=== PATIENT | female | born 1990 | race Two or more races ===

== ENCOUNTER 2018-12-01 15:40 | Emergency (ER) | payer BC ==
[~2018-12-01] VITALS: Ht 157.5 cm; Wt 72.6 kg
--- NOTE | 2018-12-01 16:10 | PHYS DOC ---
Adult General Chief Complaint Chief Complaint: VAGINAL BLEEDING [facility] HPI Patient is a 28 year old Greek-speaking female 1 para 0 currently 6 weeks presenting to the ED today complaining of vaginal bleeding in that began today after having sex this morning. Patient is also complaining of slight low back cramping. Denies any nausea vomiting. Denies any urgency frequency dysuria. Denies any concerns for STDs. Interpretation was provided by the RN who speaks Greek (PATRICIA ALVAREZ APRN) Review of Systems Review of Systems Constitutional: Denies fever or chills [] Eyes: Denies change in visual acuity, redness, or eye pain [] HENT: Denies nasal congestion or sore throat [] Respiratory: Denies cough or shortness of breath [] Cardiovascular: No additional information not addressed in HPI [] GI: Reports vaginal bleeding in , denies abdominal pain, nausea, vomiting, bloody stools or diarrhea [] : Denies dysuria or hematuria [] Musculoskeletal: Denies back pain or joint pain [] Integument: Denies rash or skin lesions [] Neurologic: Denies headache, focal weakness or sensory changes [] All other systems were reviewed and found to be within normal limits, except as documented in this note. (PATRICIA ALVAREZ APRN) Allergies Allergies Allergies Coded Allergies Type Severity Reaction Last Updated Verified No Known Drug Allergies 12/01/18 No (ADE CHINCHILLA MD) Physical Exam Physical Exam Constitutional: Well developed, well nourished, no acute distress, non-toxic appearance. [] HENT: Normocephalic, atraumatic, bilateral external ears normal, oropharynx moist, no oral exudates, nose normal. [] Eyes: PERRLA, EOMI, conjunctiva normal, no discharge. [] Neck: Normal range of motion, no tenderness, supple, no stridor. [] Cardiovascular:Heart rate regular rhythm, no murmur [] Lungs & Thorax: Bilateral breath sounds clear to auscultation [] Abdomen: Bowel sounds normal, soft, no tenderness, no masses, no pulsatile masses. [] Pelvic exam External pelvic appears normal, cervix is visualized, closed, no CMT, no adnexal tenderness. Trace amount of bright red blood in the vaginal vault. Skin: Warm, dry, no erythema, no rash. [] Back: No tenderness, no CVA tenderness. [] Extremities: No tenderness, no cyanosis, no clubbing, ROM intact, no edema. [] Neurologic: Alert and oriented X 3, normal motor function, normal sensory function, no focal deficits noted. [] Psychologic: Affect normal, judgement normal, mood normal. [] (PATRICIA ALVAREZ APRN) Current Patient Data Vital Signs Vital Signs Date Time Temp Pulse Resp B/P (MAP) Pulse Ox O2 Delivery O2 Flow Rate FiO2 12/01/18 16:30 72 14 113/66 (82) 95 Room Air 12/01/18 16:00 98.4 98.4 (ADE CHINCHILLA MD) Lab Values Laboratory Tests Test 12/01/18 15:57 12/01/18 16:00 12/01/18 16:25 POC Urine HCG, Qualitative Hcg positive (Negative) Urine Collection Type Unknown Urine Color Yellow Urine Clarity Clear Urine pH 6.5 Urine Specific [place] 1.010 Urine Protein Negative mg/dL (NEG-TRACE) Urine Glucose (UA) Negative mg/dL (NEG) Urine Ketones (Stick) Negative mg/dL (NEG) Urine Blood Large (NEG) Urine Nitrite Negative (NEG) Urine Bilirubin Negative (NEG) Urine Urobilinogen Dipstick 0.2 mg/dL (0.2 mg/dL) Urine Leukocyte Esterase Negative (NEG) Urine RBC >40 /HPF (0-2) Urine WBC 0 /HPF (0-4) Urine Squamous Epithelial Cells Few /LPF Urine Bacteria Few /HPF (0-FEW) White Blood Count 7.9 x10^3/uL (4.0-11.0) Red Blood Count 4.70 x10^6/uL (3.50-5.40) Hemoglobin 14.1 g/dL (12.0-15.5) Hematocrit 42.0 % (36.0-47.0) Mean Corpuscular Volume 89 fL (79-100) Mean Corpuscular Hemoglobin 30 pg (25-35) Mean Corpuscular Hemoglobin Concent 34 g/dL (31-37) Red Cell Distribution Width 13.1 % (11.5-14.5) Platelet Count 290 x10^3/uL (140-400) Neutrophils (%) (Auto) 64 % (31-73) Lymphocytes (%) (Auto) 25 % (24-48) Monocytes (%) (Auto) 8 % (0-9) Eosinophils (%) (Auto) 2 % (0-3) Basophils (%) (Auto) 1 % (0-3) Neutrophils # (Auto) 5.1 x10^3uL (1.8-7.7) Lymphocytes # (Auto) 2.0 x10^3/uL (1.0-4.8) Monocytes # (Auto) 0.6 x10^3/uL (0.0-1.1) Eosinophils # (Auto) 0.1 x10^3/uL (0.0-0.7) Basophils # (Auto) 0.1 x10^3/uL (0.0-0.2) Maternal Serum HCG Beta Subunit 33020 mIU/mL (0-5) H Sodium Level 139 mmol/L (136-145) Potassium Level 4.3 mmol/L (3.5-5.1) Chloride Level 102 mmol/L (98-107) Carbon Dioxide Level 24 mmol/L (21-32) Anion Gap 13 (6-14) Blood Urea Nitrogen 13 mg/dL (7-20) Creatinine 0.5 mg/dL (0.6-1.0) L Estimated GFR (Cockcroft-Gault) 145.9 Glucose Level 96 mg/dL (70-99) Calcium Level 9.4 mg/dL (8.5-10.1) Laboratory Tests 12/01/18 16:25 Laboratory Tests 12/01/18 16:25 (ADE CHINCHILLA MD) EKG EKG [] (PATRICIA ALVAREZ APRN) Radiology/Procedures Radiology/Procedures [] (PATRICIA ALVAREZ APRN) Course & Med Decision Making Course & Med Decision Making Pertinent Labs and Imaging studies reviewed. (See chart for details) This is a 28-year-old female patient presented to the ED today complaining of vaginal bleeding in . Last menstrual cycle was October 19, 2018. Roughly 6 weeks . Bleeding began today after having sex. Patient has paperwork from her own doctor, she had a beta hCG done on Nov 19 2018 which was 156. OB ultrasound verbal report from radiology was noted for an IUP, heart rate 113. CBC with normal WBC, normal hemoglobin and hematocrit, BMP with no acute blood group O+ urine analysis is negative for infection. Beta hCG 17,247. Verbal results of wet prep from lab- negative Patient has good follow-up. She was instructed to maintain bedrest/pelvic right. Follow-up with her HIGH SCHOOL GUIDANCE COUNSELOR in the course of this week. (PATRICIA ALVAREZ APRN) Course & Med Decision Making Staff Physician Addendum: I was working in the ER during the course of this patient's visit. I was available for consultation as needed, but I was not directly involved in the care of this patient. (ADE CHINCHILLA MD) Dragon Disclaimer Dragon Disclaimer This electronic medical record was generated, in whole or in part, using a voice recognition dictation system. (PATRICIA ALVAREZ APRN) Departure Departure Impression: Primary Impression: Threatened miscarriage Disposition: 01 HOME, SELF-CARE Condition: STABLE Referrals: SLICK ALEJANDRO Jr, MD Follow-up with your HIGH SCHOOL GUIDANCE COUNSELOR or the provided HIGH SCHOOL GUIDANCE COUNSELOR in the course of this week Patient Instructions: Threatened Miscarriage, [id number] Additional Instructions: You were evaluated in the emergency room and noted to be 6 weeks , we highly recommend you maintain pelvic this includes no sex, no strenous activities until seen by the OBGYN or your own doctor. Set up an appointment with your doctor as soon as you can. PATRICIA ALVAREZ APRN Dec 01, 2018 16:10 ADE CHINCHILLA MD Dec 01, 2018 18:50
[2018-12-01 16:25] LABS: BILIRUBIN,URINE NEGATIVE (NEG); CLARITY,URINE CLEAR; COLOR,URINE YELLOW; NITRITE,URINE NEGATIVE (NEG); PH,URINE 6.5; PROTEIN,URINE NEGATIVE (NEG-TRACE); UROBILINOGEN,URINE 0.2 mg/dL (0.2 mg/dL)
[2018-12-01 16:31] LABS: BASO # 0.1 x10^3/uL (0.0-0.2); BASO % 1 % (0-3); EOS # 0.1 x10^3/uL (0.0-0.7); EOS % 2 % (0-3); HEMOGLOBIN 14.1 g/dL (12.0-15.5); LYMPH % 25 % (24-48); MEAN CORPUSCULAR HEMOGLOBIN 30 pg (25-35); MEAN CORPUSCULAR HGB CONC 34 g/dL (31-37); MEAN CORPUSCULAR VOLUME 89 fL (79-100); MONO # 0.6 x10^3/uL (0.0-1.1); MONO % 8 % (0-9); NEUT # 5.1 x10^3uL (1.8-7.7); NEUT % 64 % (31-73); PLATELET COUNT 290 x10^3/uL (140-400); RED CELL DISTRIBUTION WIDTH 13.1 % (11.5-14.5); WHITE BLOOD COUNT 7.9 x10^3/uL (4.0-11.0)
[2018-12-01 16:47] LABS: BACTERIA,URINE FEW /HPF (0-FEW); RBC,URINE >40 /HPF (0-2); SQUAMOUS EPITHELIAL CELL,UR FEW /LPF; WBC,URINE 0 /HPF (0-4)
[2018-12-01 16:50] LABS: CALCIUM 9.4 mg/dL (8.5-10.1); CREATININE 0.5 mg/dL (0.6-1.0); GFR 145.9; POTASSIUM 4.3 mmol/L (3.5-5.1)
[2018-12-01 18:30] VITALS: BP 109/62
--- NOTE | 2018-12-02 11:23 | RAD ---
Examination: Obstetric ultrasound less than 14 weeks HISTORY: History of vaginal bleeding COMPARISON: None available FINDINGS: Uterus measures 7.8 x 5.5 x 3.9 cm. Cervical length measures 3 cm. The right ovary measures 3.5 x 2.4 x 1.7 cm. Small corpus luteal cyst identified in the right ovary. The left ovary measures 3.0 x 2.2 x 1.3 cm. Intrauterine gestational sac and yolk sac identified. heart rate is 113 bpm. Gestational sac measures 1.2 cm corresponding to 6 weeks and 0 days. [place]-rump length measures 2.2 mm corresponding to 5 weeks and 5 days. Gestational age by ultrasound is 5 weeks and 6 days with estimated delivery by ultrasound 07/28/2019. Impression: Single living intrauterine . Electronically signed by: Bryce Butcher MD (12/02/2018 11:20 AM) [facility]
[2018-12-03 16:11] LABS: GC PROBE Negative (Negative)
== END 2018-12-01 18:40 | disposition home or self-care (01) ==
LOC: ER 15:40
DX: O20.0 Threatened abortion (principal); Z3A.01 Less than 8 weeks gestation of pregnancy
CPT/HCPCS: 36415; 76801; 76817; 80048; 81001; 81025; 84702; 85025; 86850; 86900; 86901; 87491; 87591; 99285; Q0111